=== PATIENT | female | born 1945 | race Caucasian/White ===

== ENCOUNTER → 2017-05-05 16:50 | Outpatient (CLI) | payer MEDICARE, OTHER ==
[2013-12-12 09:45] VITALS: BMI 25.7
[~2017-05-05 16:50] MED LIST: ABILIFY2 MG PO; IBUPROFEN600 MG PO; LIPITOR40 MG PO; NIASPAN500 MG PO; PERCOCET 5-3251 TAB PO; PROZAC20 MG PO; ZOLOFT100 MG PO
== END | disposition home or self-care (01) ==
LOC: D.MAMMO 13:30
DX: Z12.31 Encounter for screening mammogram for malignant neoplasm of breast (principal)

== ENCOUNTER → 2018-05-25 16:51 | Outpatient (CLI) | payer MEDICARE, OTHER ==
[2013-12-12 09:45] VITALS: BMI 25.7
== END | disposition home or self-care (01) ==
LOC: D.MAMMO 04-28 13:15
DX: Z12.31 Encounter for screening mammogram for malignant neoplasm of breast (principal)

== ENCOUNTER 2019-05-26 08:00 | Outpatient (CLI) | payer MEDICARE, OTHER ==
[2013-12-12 09:45] VITALS: BMI 25.7
== END 2019-05-26 23:59 | disposition home or self-care (01) ==
LOC: D.MAMMO 08:00
PROVIDERS: ATTEND Family Medicine
DX: Z12.31 Encounter for screening mammogram for malignant neoplasm of breast (principal)

== ENCOUNTER → 2020-11-23 08:20 | Outpatient (CLI) | payer MEDICARE, OTHER ==
[2013-12-12 09:45] VITALS: BMI 25.7
--- NOTE | ~2020-11-23 | EC ---
PATIENT:FELI FABIAN DATE OF SERVICE: 11/23/20 SEX: F MEDICAL RECORD: [id number] DATE OF : 43 LOCATION:D[facility] AGE OF PATIENT: 75 ADMISSION DATE: 11/23/20 REFERRING PHYSICIAN: INTERPRETING PHYSICIAN: ROSA M FALCON MD ECHOCARDIOGRAM REPORT ECHO CHARGES 4 ECHO COMPLETE Date: 11/23/20 CLINICAL DIAGNOSIS: ANGINA/LBBB/ASSESS EF ECHOCARDIOGRAPHIC MEASUREMENTS (adult normal given) AC root (d.<3.7cm) 3.4 cm LV Septum d (<1.2 cm> 1.4 cm Valve Excursion 1.8 cm LV Septum (systole) 1.7 cm Left Atria (s.<4.0cm> 3.8 cm LVPW d(<1.2cm) 1.5 cm RV (d.<2.3cm) 3.4 cm LVPW (sytole) 1.8 cm LV diastole(<5.6CM) 5.8 cm MV E-F(>70mm/sec) cm LV systole 4.4 cm LVOT Diameter 1.9 cm MV exc.(>10mm) 1.0 cm Est.ejection fraction (50-75%) % DOPPLER: LVIT cm/sec A 111.0cm/sec E 95.0 cm/sec LA cm/sec RVSP 35 mmHg LVOT 90 cm/sec AOP1/2T 751 m/s Asc. Ao 137 cm/sec RVOT cm/sec RA cm/sec PA 101 cm/sec AV Gradient Peak 7.52 mmHg AV Mean 4.07 mmHg AV Area 1.9 cm MV Gradient Peak 5.60 mmHg MV Mean 2.20 mmHg MV Area cm COMMENTS: Consulting Business Developer: 2 NATAN LOVELACE Pier Worker: 3 Dr. Morillo TAPE# PACS Pericardial Effusion N DATE OF SERVICE: Adequate 2D, color-flow imaging, spectral Doppler, and M-Mode FINDINGS: LVH is present. LV internal dimensions are normal. LV wall motion is normal. EF is greater than or equal to 55%. Aortic valve is tricuspid. No evidence of stenosis by Doppler interrogation. Mild AI with color flow imaging. Left atrium is normal at 3.8 cm. Mitral valve shows no prolapse. Trace to mild MR. Right side is grossly normal. Mild TR. TRANSINT:[id number] Voice Confirmation ID: [id number] DOCUMENT ID: [id number] ECHOCARDIOGRAM REPORT [id number] FELI FABIAN GREGORY A MD CC: [id number] DICTATION DATE: 11/26/20 164 STITCH BONDING MACHINE TENDER HELPER: 11/26/20 2303 DEP CLI 11/23/20 [place] [id number] [place] [id number]
== END | disposition home or self-care (01) ==
LOC: D.HCCECHO 08:20
PROVIDERS: ATTEND Internal Medicine Cardiovascular Disease
DX: I20.9 Angina pectoris, unspecified (principal)